=== PATIENT | male | born 1990 | race American Indian/Alaskan Native ===

== ENCOUNTER 2018-06-26 12:13 | Inpatient (IN) | payer MEDICAID ==
--- NOTE | 2018-06-26 13:33 | C.PDOC ---
History Of Present Illness 28 yo male, comes to ER requesting detox from alcohol, marijuana and crystal meth. Patient reports last use was yesterday. otherwise, denies any fever, chills, chest pain, shortness of breath, abdominal pain. Patient offers no additional medical complaints. Time Seen by Provider: 06/26/18 13:11 Chief Complaint (Nursing): Substance Abuse History Per: Patient History/Exam Limitations: no limitations Onset/Duration Of Symptoms: Days (1) Past Medical History Reviewed: Historical Data, Nursing Documentation, Vital Signs Vital Signs: Last Vital Signs Temp 98.5 F 06/26/18 15:12 Pulse 90 06/26/18 15:12 Resp 20 06/26/18 15:12 BP 122/72 06/26/18 15:12 Pulse Ox 98 06/26/18 15:12 - Medical History PMH: HIV Surgical History: No Surg Hx Family History: States: No Known Family Hx - Social History Hx Alcohol Use: Yes Hx Substance Use: Yes Review Of Systems Except As Marked, All Systems Reviewed And Found Negative. Constitutional: Negative for: Fever, Chills Cardiovascular: Negative for: Chest Pain Respiratory: Negative for: Shortness of Breath Gastrointestinal: Negative for: Abdominal Pain Physical Exam - Physical Exam Appears: No Acute Distress Skin: Normal Color, Warm Head: Atraumatic, Normacephalic Eye(s): bilateral: Normal Inspection Oral Mucosa: Moist Neck: Normal ROM, Supple Chest: Symmetrical Cardiovascular: Rhythm Regular Respiratory: Normal Breath Sounds Gastrointestinal/Abdominal: Normal Exam, Soft, No Tenderness Back: Normal Inspection Extremity: Normal ROM, No Pedal Edema Neurological/Psych: Oriented x3 ED Course And Treatment - Laboratory Results Result Diagrams: 06/26/18 13:41 06/26/18 13:41 O2 Sat by Pulse Oximetry: 100 (RA) Pulse Ox Interpretation: Normal Medical Decision Making Medical Decision Making: Assessment: Substance abuse Plan: * Labs * Urinalysis Patient reports he has been pre-screened for detox. Disposition Discussed With : Ramo Leon Doctor Will See Patient In The: Hospital Counseled Patient/Family Regarding: Studies Performed, Diagnosis - Disposition Disposition: HOSPITALIZED Disposition Time: 15:39 Condition: FAIR Forms: [facility] (Russian) - Clinical Impression Clinical Impression: Drug abuse - Scribe Statement The provider has reviewed the documentation as recorded by the Lorraine Mariscal Provider Attestation: All medical record entries made by the Henriiblacey were at my direction and personally dictated by me. I have reviewed the chart and agree that the record accurately reflects my personal performance of the history, physical exam, medical decision making, and the department course for this patient. I have also personally directed, reviewed, and agree with the discharge instructions and disposition.
[2018-06-26 13:55] LABS: URINE BILIRUBIN NEGATIVE (NEGATIVE); URINE BLOOD NEGATIVE (NEGATIVE); URINE CLARITY Clear (Clear); URINE COLOR Straw (YELLOW); URINE GLUCOSE (UA) NORMAL (Normal); URINE LEUKOCYTE ESTERASE NEG Leu/uL (Negative); URINE PROTEIN NEGATIVE (NEGATIVE); URINE UROBILINOGEN NORMAL mg/dL (0.2-1.0)
[2018-06-26 14:04] LABS: BASO % 0.9 % (0.0-2.0); EOS % 0.7 % (0.0-4.0); HEMOGLOBIN 14.6 g/dL (12.0-18.0); LYMPH # 1.7 K/uL (1.0-4.3); MEAN CELL VOLUME 86.9 fL (80.0-94.0); MEAN CORPUSCULAR HEMOGLOBIN 30.2 pg (27.0-31.0); MEAN CORPUSCULAR HGB CONC 34.8 g/dL (33.0-37.0); MEAN PLATELET VOLUME 9.6 fL (7.2-11.7); MONO # 0.4 K/uL (0.0-0.8); MONO % 8.1 % (0.0-10.0); NEUT # 2.6 K/uL (1.8-7.0); NEUT % 54.3 % (50.0-75.0); NRBC % 0.1 % (0.0-2.0); RBC 4.82 Mil/uL (4.40-5.90); RED CELL DISTRIBUTION WIDTH 14.5 % (11.5-14.5); WHITE BLOOD COUNT 4.8 K/uL (4.8-10.8)
[2018-06-26 14:16] LABS: ALB/GLOB RATIO 1.1 (1.0-2.1); ALBUMIN 4.5 g/dL (3.5-5.0); ALT/SGPT 29 U/L (21-72); AST/SGOT 37 U/L (17-59); BLOOD UREA NITROGEN 9 mg/dL (9-20); CALCIUM 9.6 mg/dl (8.6-10.4); GFR NON-AFRICAN AMERICAN > 60
[2018-06-26 14:33] LABS: BARBITURATES, UR NEGATIVE (NEGATIVE); BENZODIAZEPINES, UR NEGATIVE (NEGATIVE); OPIATES, UR NEGATIVE (NEGATIVE); PHENCYCLIDINE, UR NEGATIVE (NEGATIVE)
--- NOTE | 2018-06-26 16:31 | PCM.BM ---
<Jazlyn Flanagan - Last Filed: 06/26/18 16:29> Treatment Plan Problems - Problems identified on initial assessmt potiential for autonomic instability related to alcohol withdrawal Date Initiated: 06/26/18 Time Initiated: 16:30 Assessment reference: NA Status: Active Treatment assets and liabiliti Patient Assests: ADL independent, physically healthy, cognitively intact Patient Liabilities: substance abuse, legal issue - Milieu Protocol Maintain good personal hygiene: daily Encourage regular showers, daily Remind patient to perform daily oral care, daily Assist patient to perform ADL's Maintain personal safety: every shift Educate patient to report safety concerns to staff, every shift Monitor environment for contraband/sharps Medication safety: Monitor for expected outcome, potential side effects: every shift, Assess barriers to learning: every shift, Assess readiness for medication education: every shift <Ramo eLon - Last Filed: 06/28/18 12:45> - Diagnosis (1) Alcohol use disorder, severe, dependence Status: Acute Interventions: 06/28/18 12:45 * Assess 7x/week regarding severity of withdrawal * Educate regarding risks, benefits, side effects and alternatives of medications * Use Motivational Interviewing for abstinence * Use CBT for relapse prevention * Medication management for withdrawal symptoms * Encourage medication assisted treatment * <Janet Melo - Last Filed: 06/29/18 14:15> Family Contact Family involvement: Family/SO is involved Family contact name: mother Family contacted how many times per week?: 3 - Goals for Treatment Patient goals for treatment: Complete detox and apply for inpatient rehab in [place]. Discharge/Continuing Care - Education Needs Education Needs: Family Medication, Family Diagnosis/Disease Process, Family Placement options, Family Community resources, Patient Medication, Patient Diagnosis/Disease Process, Patient Coping Skills, Patient Anger Management skills, Patient Placement options, Patient Community resources - Discharge Discharge Criteria: Ability to care for self, No longer exhibiting s/s of withdrawal, Reduction of target symptoms Discharge to:: Substance Abuse Rehab - Treatment Team Participation Patient/Family/SO Statement: 06/29/18 14:15 "My mom is gonna help me get into a place in [place]." Discussed with Family/SO: Yes Was Patient/Family/SO present at Treatment Team Meeting: Yes
--- NOTE | 2018-06-27 11:36 | PCM.PSYCH ---
Initial Psychiatric Evaluation - Initial Psychiatric Evaluation Type of Admission: Voluntary Legal Status: Capacity Chief Complaint (in patient's own words): "I came for detox" History of Present Illness and Precipitating Events: This is a 28 year old male, single and unemployed, living with his parents in [place]. The patient is here for detox from multiple drug abuse. He reports using alcohol, methamphetamine and smoking weed in the last 6 years. He also reports smoking 1 pack per day. He has never been to detox or rehabilitation before. He denies any past psych hospitalization. Patient reports of withdrawal symptoms including abdominal cramps, anxiety, headaches and sweating. Patient reports irritable mood, but denies any feelings of hopelessness and helplessness, poor sleep and poor appetite. He denies any suicidal ideation or any homicidal ideation. He denies any manic symptoms. He denies any auditory or visual hallucinations or any psychotic symptoms. Current Medications: Active Medications Generic Name Dose Route Start Last Admin Trade Name Freq PRN Reason Stop Dose Admin Chlordiazepoxide 25 mg 06/26/18 18:00 06/27/18 06:50 Librium PO 06/30/18 17:59 25 mg Q6 JOSEY Administration Taper Chlordiazepoxide 25 mg 06/26/18 17:29 Librium PO Q4H PRN Alcohol Withdrawal Ibuprofen 600 mg 06/26/18 17:43 06/26/18 20:40 Motrin Tab PO 600 mg Q6 PRN Administration pain Pneumococcal Polyvalent Vaccine 0.5 ml 06/28/18 09:00 Pneumovax 23 Vaccine IM 06/28/18 09:01 .ONCE ONE Trazodone HCl 100 mg 06/26/18 21:14 06/26/18 22:21 Desyrel PO 100 mg HS PRN Administration Insomnia Past Psychiatric History - Past Psychiatric History Previous Treatment History: Inpatient Pertinent Medical Hx (Current Medical&Sleep Prob, Allergies): Allergies Allergy/AdvReac Type Severity Reaction Status Date / Time No Known Allergies Allergy Verified 06/26/18 12:39 No Known Home Med 06/26/18 Review of Systems - Review of Systems All systems: reviewed and no additional remarkable complaints except - Psychiatric Psychiatric: Anxiety, Irritability. absent: Suicidal Ideation Mental Status Examination - Personal Presentation Personal Presentation: Looks stated age - Affect Affect: Constricted - Motor Activity Motor Activity: Calm - Reliability in Providing Information Reliability in Providing Information: Good - Speech Speech: Organized - Mood Mood: Anxious - Formal Thought Process Formal Thought Process: No Impairment - Obsessions/Compulsions Obsessions: No Compulsions: No - Cognitive Functions Orientation: Person, Place, Situation, Time Sensorium: Alert Attention/Concentration: Attentive Abstract Thinking: Mylo Estimate of Intelligence: Below average Judgement: Imparied, as evidence by: Poor judgement, Intact, as evidence by: Insight regarding need for hospitalization - Risk Risk: Withdrawal, Diminished functioning - Limitations Limitations: Living alone DSM 5 DX - DSM 5 DSM 5 Diagnosis: Alcohol use d/o- severe Alcohol withdrawal - Recommended/Plan of Treatment Treatment Recommendations and Plan of Treatment: Alcohol use d/o- severe Alcohol withdrawal CBT Attend groups and activities Supportive therapy and psychoeducation As needed medications All risks, benefits and alternatives of the meds discussed, and the pt agreed and understood. Librium taper Gabapentin for augmentation if needed PA for abstinence Refer to rehab or IOP, and self-help groups Smoking cessation with PA Nicotine patch if needed - Smoking Cessation Smoking Cessation Initiated: No
[2018-06-28] MEDS ORDERED: Aluminum Hydroxide/Magnesium Hydroxide Susp (30 mL) PO PRN (00:37)
[2018-06-28] MEDS ORDERED: Pneumococcal 23-Valent Vaccine IM ONE (09:00)
[2018-06-28] MEDS: Multiple Vitamins Tab PO SCH (10:06)
--- NOTE | 2018-06-28 12:44 | PCM.PYCHPN ---
Psychiatric Progress Note - Psychiatric Progress Note Patient seen today, length of contact: 16 min Patient Chief Complaint: "A little better" Problems Identified/Issues Discussed: The pt is seen, chart reviewed, case discussed with staff. The pt is compliant with medications and reports no side-effects. Symptoms are improving but needs more time to stabilize. Pt attends groups and activities. Support given, psycho-education provided. After care discussed. Medication Change: Yes (detox changes daily) Medical Record Reviewed: Yes Mental Status Examination - Cognitive Function Orientation: Person, Place, Situation, Time Memory: Intact Attention: WNL Concentration: Poor Association: WNL Fund of Knowledge: WNL - Mood Mood: Anxious - Affect Affect: Constricted - Speech Speech: Appropriate - Formal Thought Process Formal Thought Process: No Impairment - Suicidal Ideation Suicidal Ideation: No - Homicidal Ideation Homicidal Ideation: No Goal/Treatment Plan - Goal/Treatment Plan Need for Continued Stay: Discharge may exacerbated symptoms, Severe functional impairment Progress Toward Problem(s) and Goals/Treatment Plan: Librium taper CBT Attend groups and activities Supportive therapy and psychoeducation As needed medications All risks, benefits and alternatives of the meds discussed, and the pt agreed and understood. Gabapentin for augmentation if needed [place] for abstinence Refer to rehab or IOP, and self-help groups Smoking cessation with NC Nicotine patch if needed
[2018-06-29] MEDS: Multiple Vitamins Tab PO SCH (09:12)
--- NOTE | 2018-06-29 12:25 | PCM.PYCHPN ---
Psychiatric Progress Note - Psychiatric Progress Note Patient seen today, length of contact: 16 min Patient Chief Complaint: "A little better" Problems Identified/Issues Discussed: The pt is seen, chart reviewed, case discussed with staff. The pt is compliant with medications and reports no side-effects. Symptoms are improving but needs more time to stabilize. Pt attends groups and activities. Support given, psycho-education provided. After care discussed. Medication Change: Yes (detox changes daily) Medical Record Reviewed: Yes Mental Status Examination - Cognitive Function Orientation: Person, Place, Situation, Time Memory: Intact Attention: WNL Concentration: Poor Association: WNL Fund of Knowledge: WNL - Mood Mood: Anxious - Affect Affect: Constricted - Speech Speech: Appropriate - Formal Thought Process Formal Thought Process: No Impairment - Suicidal Ideation Suicidal Ideation: No - Homicidal Ideation Homicidal Ideation: No Goal/Treatment Plan - Goal/Treatment Plan Need for Continued Stay: Discharge may exacerbated symptoms, Severe functional impairment Progress Toward Problem(s) and Goals/Treatment Plan: Librium taper CBT Attend groups and activities Supportive therapy and psychoeducation As needed medications All risks, benefits and alternatives of the meds discussed, and the pt agreed and understood. Gabapentin for augmentation if needed [place] for abstinence Refer to rehab or IOP, and self-help groups Smoking cessation with HI Nicotine patch if needed
[2018-06-29 17:56] VITALS: RESP 18
--- NOTE | 2018-06-30 08:12 | PCM.PYCHDC ---
Mental Status Examination - Mental Status Examination Orientation: Person Discharge Summary - Discharge Note Consultations:: List each consultation separately and include: 1. Reason for request. 2. Findings. 3. Follow-up Summary of Hospital Course include:: 1. Description of specific treatment plan utilized for patients during their course of treatmen. 2. Summarize the time- course for resolution of acute symptoms and/or regressed behaviors. 3. Describe issues identified and worked on during hospitalization. 4. Describe medication utilized. 5. Describe medical problems identified and treated. 6. Reassessment of suicide risk Summary of Hospital Course: He will go to [facility] [id number] [place] [address] - Diagnosis (1) Alcohol use disorder, severe, dependence Current Visit: Yes Status: Acute - Final Diagnosis (DSM 5) Condition upon Discharge: FAIR Disposition: HOME/ ROUTINE Follow-up Treatment Plan: Librium taper CBT Attend groups and activities Supportive therapy and psychoeducation As needed medications All risks, benefits and alternatives of the meds discussed, and the pt agreed and understood. Gabapentin for augmentation if needed [place] for abstinence Refer to rehab or IOP, and self-help groups Smoking cessation with [place] Nicotine patch if needed Prescriptions/Medication Reconciliation: traZODone [Desyrel] 100 mg PO HS PRN #30 tab PRN Reason: Insomnia
[2018-06-30] MEDS: Multiple Vitamins Tab PO SCH (09:31)
[2018-06-30 10:06] VITALS: BP 132/80; PULSE 109; TEMP 97.3; O2SAT 100
== END 2018-06-30 10:15 | disposition home or self-care (01) | DRG 751 ==
LOC: C.ER 12:13 → C.7D 15:38
PROVIDERS: ADMIT Psychiatry & Neurology Psychiatry; ATTEND Psychiatry & Neurology Psychiatry
PROC: HZ2ZZZZ Detoxification Services for Substance Abuse Treatment (ICD-10-PCS; principal; 2018-06-26)
PROC: HZ52ZZZ Individual Psychotherapy for Substance Abuse Treatment, Cognitive-Behavioral (ICD-10-PCS; 2018-06-26)
PROC: HZ59ZZZ Individual Psychotherapy for Substance Abuse Treatment, Supportive (ICD-10-PCS; 2018-06-26)
PROC: HZ56ZZZ Individual Psychotherapy for Substance Abuse Treatment, Psychoeducation (ICD-10-PCS; 2018-06-26)
PROC: HZ42ZZZ Group Counseling for Substance Abuse Treatment, Cognitive-Behavioral (ICD-10-PCS; 2018-06-26)
PROC: HZ46ZZZ Group Counseling for Substance Abuse Treatment, Psychoeducation (ICD-10-PCS; 2018-06-26)
DX: F10.230 Alcohol dependence with withdrawal, uncomplicated (principal); F12.90 Cannabis use, unspecified, uncomplicated; F15.90 Other stimulant use, unspecified, uncomplicated; F41.9 Anxiety disorder, unspecified; F17.210 Nicotine dependence, cigarettes, uncomplicated; Y90.0 Blood alcohol level of less than 20 mg/100 ml; G47.00 Insomnia, unspecified